=== PATIENT | male | born 1945 | race Caucasian/White ===

== ENCOUNTER 2019-04-30 11:49 | Emergency (ER) | payer MEDICARE, OTHER ==
[2019-04-30 12:18] VITALS: BP 110/58
--- NOTE | 2019-04-30 12:50 | UC ---
Skin Complaint HPI - HPI Summary HPI Summary: 74-year-old male comes in with a chief complaint of a rash in his right posterior shoulder. It was noticed last couple of days. Patient denies any trauma. He is on Plavix. Has a history of shingles. No fevers feels well. No neck pain or midline back pain. - History of Current Complaint Chief Complaint: UCSkin Time Seen by Provider: 04/30/19 12:37 Stated Complaint: SKIN CONCERN Pain Intensity: 0 - Allergy/Home Medications Allergies/Adverse Reactions: Allergies Allergy/AdvReac Type Severity Reaction Status Date / Time niacin Allergy Itching Verified 04/30/19 12:15 [id number] Reductase Allergy Rash Verified 04/30/19 12:15 Inhibitor Home Medications: Home Medications Dulaglutide [Trulicity] 0.75 mg SQ WEEKLY 04/30/19 [History Confirmed 04/30/19] Insulin GLARGINE(*) [Lantus(*)] 36 units SUBCUT DAILY 04/30/19 [History Confirmed 04/30/19] Insulin LISPRO* [HumaLOG*] 24 units SUBCUT DIRECTED 04/30/19 [History Confirmed 04/30/19] Pitavastatin Calcium [Livalo] 2 mg PO DAILY 04/30/19 [History Confirmed 04/30/19 ] Tamsulosin CAP* [Flomax CAP*] 0.4 mg PO DAILY 04/30/19 [History Confirmed ] PMH/Surg Hx/FS Hx/Imm Hx Previously Healthy: Yes Endocrine History: Diabetes Cardiovascular History: Hypertension - Surgical History Surgical History: Yes Surgery Procedure, Year, and Place: bypass surgery - Family History Known Family History: Positive: Non-Contributory - Social History Alcohol Use: None Substance Use Type: None Smoking Status (MU): Former Smoker Review of Systems All Other Systems Reviewed And Are Negative: Yes Constitutional: Positive: Negative Skin: Positive: Other - SEE HPI Eyes: Positive: Negative ENT: Positive: Negative Respiratory: Positive: Negative Cardiovascular: Positive: Negative Gastrointestinal: Positive: Negative Motor: Positive: Negative Neurovascular: Positive: Negative Musculoskeletal: Positive: Negative Neurological: Positive: Negative Psychological: Positive: Negative Is Patient Immunocompromised?: No Physical Exam Triage Information Reviewed: Yes Appearance: Well-Appearing, No Pain Distress, Well-Nourished Vital Signs: Initial Vital Signs Temp 97.5 F 04/30/19 12:11 Pulse 82 04/30/19 12:11 Resp 18 04/30/19 12:11 BP 110/58 04/30/19 12:11 Pulse Ox 100 04/30/19 12:11 Vital Signs Reviewed: Yes Eye Exam: Normal Eyes: Positive: Conjunctiva Clear Neck: Positive: Supple, Nontender Respiratory: Positive: No respiratory distress Musculoskeletal Exam: Normal Musculoskeletal: Positive: Strength Intact, ROM Intact Neurological Exam: Normal Neurological: Positive: Alert, Muscle Tone Normal Psychological Exam: Normal Psychological: Positive: Normal Response To Family, Age Appropriate Behavior Skin: Positive: Other - On the right shoulder there is a flat area of ecchymosis that's nonblanching 6 cm x 6 cm. No vesicles. It's mildly tender to palpation. The rash isn't one spot and there is no extension throughout the dermatome. No tenderness other than on the rash itself. The rest of the skin does not show any signs of bruising. Course/Dx - Course Course Of Treatment: The rash appears to be an ecchymotic bruise. Does not appear to be shingles. The patient and his are worried about the possibility of shingles on it sent a prescription for valacyclovir to be used if he developed vesicles are rash spread through the dermatome. Patient is on Plavix. We discussed that if he gets any further unexplained bruising or gets blood in the urine nor feels ill he needs to get evaluated right away. - Diagnoses Provider Diagnosis: Bruise, Rash Discharge - Sign-Out/Discharge Documenting (check all that apply): Patient Departure All imaging exams completed and their final reports reviewed: No Studies - Discharge Plan Condition: Stable Disposition: HOME Prescriptions: Valacyclovir HCl [Valacyclovir] 1 gm PO TID #21 tab Patient Education Materials: Acute Rash (ED), Contusion in Adults (ED) Referrals: Lulu Lema MD [Primary Care Provider] - Additional Instructions: FOLLOW UP WITH YOUR DOCTOR IF NOT COMPLETELY IMPROVED. START THE VALACYCLOVIR IF THE RASH APPEARS TO BE SHINGLES. GET REEVALUATED IF ANY NEW BRUISING OCCURS. GET REEVALUATED SOONER IF WORSE OR ANY QUESTIONS OR CONCERNS. - Billing Disposition and Condition Condition: STABLE Disposition: Home
== END 2019-04-30 13:02 | disposition home or self-care (01) ==
LOC: UCCORT 11:49
DX: R58 Hemorrhage, not elsewhere classified (principal); R21 Rash and other nonspecific skin eruption; Z79.01 Long term (current) use of anticoagulants; E11.9 Type 2 diabetes mellitus without complications; Z79.4 Long term (current) use of insulin; I10 Essential (primary) hypertension; Z87.891 Personal history of nicotine dependence
CPT/HCPCS: 99202; G0463